=== PATIENT | female | born 1995 | race Caucasian/White ===

== ENCOUNTER 2020-12-06 08:13 | Observation (INO) ==
[2020-12-06 09:59] LABS: Basophils % 0.3 %; Eosinophils % 1.2 %; Hemoglobin 7.2 g/dL (11.5-15.4); Lymphocytes % 22.4 %
[2020-12-06 10:00] LABS: Eosinophils # 0.1 K/mcL (0.0-0.6); Hematocrit 25.6 % (35.3-44.9); Immature Granulocytes % 0.1 % (0-4); Lymphocytes # 1.5 K/mcL (0.6-4.6); Mean Corpuscular HGB Conc 28.1 g/dL (31.6-35.5); Mean Corpuscular Volume 67.7 fL (83.0-100.0); Mean Platelet Volume 10.5 fL (9.4-12.4); Monocytes # 0.5 K/mcL (0.0-1.3); Monocytes % 8.1 %; Neutrophils # 4.6 K/mcL (1.6-8.9); Platelet Count 308 K/mcL (140-400); Red Blood Count 3.78 M/mcL (3.82-4.97); Red Cell Distribution Width 15.6 % (11.5-14.5); Segmented Neutrophils % 67.9 %; White Blood Count 6.7 K/mcL (4.3-11.1)
[2020-12-06 10:18] LABS: BUN/Creatinine Ratio 9 (6-26); Blood Urea Nitrogen 6 mg/dL (6-20); Calcium 8.7 mg/dL (8.6-10.3); Chloride 108 mEq/L (98-107); Glucose 86 mg/dL (70-105); Osmolality,Calculated 287 (280-300); Potassium 3.1 mEq/L (3.5-5.1); Sodium 140 mEq/L (136-145); eGFR For African Americans > 60 (> 60); eGFR For Non-African Americans > 60 (> 60)
[2020-12-06 10:37] LABS: Carbon Dioxide 24 mEq/L (23-29)
[2020-12-06 10:48] LABS: Anisocytosis 1+ (Not Present); Hypochromasia Present (Not Present); Microcytosis Present (Not Present); Platelet Estimate Normal (Normal)
[2020-12-06 12:11] LABS: Influenza A PCR Negative (Negative); Influenza B PCR Negative (Negative); Resp. Syncytial Virus PCR Negative (Negative)
[2020-12-06 12:12] LABS: SARS-CoV-2 by PCR (In House) Negative (Negative)
[2020-12-06] MEDS ORDERED: Naloxone 0.4 MG/ML INJ IVP PRN (13:33)
[2020-12-06 15:01] LABS: Ferritin < 8 ng/mL (10-120)
[2020-12-06 15:39] LABS: Folate 9.1 ng/mL (3.0-16.0)
[2020-12-06 15:41] LABS: Iron 18 mcg/dL (50-170)
[2020-12-06 17:06] LABS: Bilirubin,Urine Negative (Negative); Blood,Urine Trace (Negative); Clarity,Urine Clear (Clear); Color,Urine Light-Yellow (Yellow); Glucose,Urine (UA) Normal (Normal); Ketones,Urine Negative (Negative); Leukocyte Esterase,Urine Negative (Negative); Mucus,Urine Few per lpf (None-Few); Nitrite,Urine Negative (Negative); Protein,Urine Negative (Neg-Trace); Specific Gravity,Urine 1.014 (1.010-1.025); Squamous Epithelial Cell,Urine Few per hpf (None-Few); WBC,Urine 0-3 per hpf (0-3)
[2020-12-06] MEDS ORDERED: 0.9 % Sodium Chloride 250 ML ONE (17:07)
[2020-12-06] MEDS ORDERED: Melatonin 3 MG TABLET PO PRN (18:01)
[2020-12-06 20:08] LABS: Hematocrit 29.8 % (35.3-44.9); Hemoglobin 8.4 g/dL (11.5-15.4)
[2020-12-07 02:04] LABS: Basophils % 0.5 %; Immature Granulocytes % 0.2 % (0-4); Mean Platelet Volume 10.9 fL (9.4-12.4)
[2020-12-07 02:06] LABS: Eosinophils # 0.2 K/mcL (0.0-0.6); Eosinophils % 2.9 %; Hematocrit 28.8 % (35.3-44.9); Hemoglobin 8.1 g/dL (11.5-15.4); Lymphocytes # 1.9 K/mcL (0.6-4.6); Lymphocytes % 30.7 %; Mean Corpuscular HGB Conc 28.1 g/dL (31.6-35.5); Mean Corpuscular Hemoglobin 19.3 pg (28.0-33.3); Mean Corpuscular Volume 68.7 fL (83.0-100.0); Monocytes # 0.7 K/mcL (0.0-1.3); Monocytes % 10.7 %; Neutrophils # 3.5 K/mcL (1.6-8.9); Platelet Count 362 K/mcL (140-400); Red Blood Count 4.19 M/mcL (3.82-4.97); Red Cell Distribution Width 16.8 % (11.5-14.5); White Blood Count 6.3 K/mcL (4.3-11.1)
[2020-12-07 02:22] LABS: Anisocytosis 1+ (Not Present); Microcytosis Present (Not Present); Platelet Estimate Normal (Normal)
[2020-12-07 02:24] LABS: BUN/Creatinine Ratio 12 (6-26); Blood Urea Nitrogen 7 mg/dL (6-20); Calcium 8.7 mg/dL (8.6-10.3); Carbon Dioxide 24 mEq/L (23-29); Chloride 110 mEq/L (98-107); Glucose 95 mg/dL (70-105); Magnesium 1.9 mg/dL (1.6-2.6); Osmolality,Calculated 288 (280-300); Phosphorous 3.9 mg/dL (2.7-4.5); Potassium 3.5 mEq/L (3.5-5.1); Sodium 140 mEq/L (136-145); eGFR For African Americans > 60 (> 60); eGFR For Non-African Americans > 60 (> 60)
[2020-12-07 06:45] LABS: % Iron Saturation 3 % (15-50); Transferrin 480 mg/dL (203-362)
[2020-12-07] MEDS ORDERED: Iron Sucrose Complex 400 MG in 0.9 % Sodium Chloride 250 ML IVPB ONE (09:21)
[2020-12-07] MEDS ORDERED: 0.9 % Sodium Chloride 250 ML ONE (13:02)
[2020-12-07 15:35] VITALS: O2SAT 98
[2020-12-07 16:51] VITALS: BP 126/77; PULSE 68; TEMP 98.8
[2020-12-07 18:06] LABS: Hematocrit 32.9 % (35.3-44.9); Hemoglobin 9.7 g/dL (11.5-15.4)
== END 2020-12-07 18:47 | disposition home or self-care (01) ==
LOC: EMEROOARM 08:13 → 3BNU 08:13
PROVIDERS: ADMIT Internal Medicine; ATTEND Internal Medicine